=== PATIENT | male | born 1945 | race Caucasian/White ===

== ENCOUNTER → 2017-06-30 | Outpatient (CLI) | payer MEDICARE, BC ==
[~2017-06-30] MED LIST: NAPROSYN500 MG PO; NORCO 325 MG-51 TAB PO
== END ==
LOC: MHCPAIN 09:57
DX: G89.29 Other chronic pain (principal); M54.12 Radiculopathy, cervical region; M47.812 Spondylosis without myelopathy or radiculopathy, cervical region
CPT/HCPCS: G0463

== ENCOUNTER → 2017-07-02 | Outpatient (CLI) | payer MEDICARE, BC | LOC: MHCPAIN 12:16 | DX: M50.10 Cervical disc disorder with radiculopathy, unspecified cervical region (principal); M50.20 Other cervical disc displacement, unspecified cervical region | CPT/HCPCS: J1100; Q9967 ==

== ENCOUNTER → 2017-07-15 | Outpatient (CLI) | payer MEDICARE, BC | LOC: MHCPAIN 13:26 | DX: G89.29 Other chronic pain (principal); M50.90 Cervical disc disorder, unspecified, unspecified cervical region; M54.12 Radiculopathy, cervical region | CPT/HCPCS: G0463 ==

== ENCOUNTER → 2017-08-05 | Outpatient (CLI) | payer MEDICARE, BC | LOC: MHCPAIN 14:07 | DX: M47.22 Other spondylosis with radiculopathy, cervical region (principal); M50.323 Other cervical disc degeneration at C6-C7 level | CPT/HCPCS: J1100; Q9967 ==

== ENCOUNTER → 2018-02-22 | Outpatient (CLI) | payer MEDICARE, BC | LOC: MHCPAIN 08:07 | DX: G89.29 Other chronic pain (principal); M47.817 Spondylosis without myelopathy or radiculopathy, lumbosacral region; M54.16 Radiculopathy, lumbar region; M53.3 Sacrococcygeal disorders, not elsewhere classified; M50.90 Cervical disc disorder, unspecified, unspecified cervical region; M54.12 Radiculopathy, cervical region | CPT/HCPCS: G0463 ==

== ENCOUNTER → 2018-03-01 | Outpatient (CLI) | payer MEDICARE, BC | LOC: MHCPAIN 11:55 | DX: M47.817 Spondylosis without myelopathy or radiculopathy, lumbosacral region (principal); M54.5 Low back pain | CPT/HCPCS: J1040; Q9967 ==

== ENCOUNTER → 2018-04-07 | Outpatient (CLI) | payer MEDICARE, BC | LOC: MHCPAIN 13:09 | DX: G89.29 Other chronic pain (principal); M47.817 Spondylosis without myelopathy or radiculopathy, lumbosacral region; M53.3 Sacrococcygeal disorders, not elsewhere classified; M50.90 Cervical disc disorder, unspecified, unspecified cervical region; M54.12 Radiculopathy, cervical region | CPT/HCPCS: G0463 ==

== ENCOUNTER 2019-10-19 11:19 | Day surgery (SDC) | payer MEDICARE, BC ==
[~2019-10-19] VITALS: Ht 180.3 cm; Wt 128.6 kg
[2019-10-19] VITALS (9 sets, daily range): BP systolic 128–155; BP diastolic 54–76; PULSE 48–64; TEMP 97.7–98.2
[2019-10-19] MEDS ORDERED: CELEBREX 200MG200 MG PO (13:13)
[2019-10-19] MEDS ORDERED: ZOCOR 20MG20 MG PO (13:15)
[2019-10-19] MEDS ORDERED: ZEBETA 5MG5 MG PO (13:17)
[2019-10-19] MEDS ORDERED: PROSCAR 5MG5 MG PO (13:22)
[2019-10-19] MEDS ORDERED: RAPAFLO8 MG PO (13:22)
[2019-10-19] MEDS ORDERED: THEO-24400 MG PO (13:23)
[2019-10-19] MEDS ORDERED: BROVANA15 MCG/2 M IH (13:23)
[2019-10-19] MEDS ORDERED: PULMICORT0.5 MG/2 M IH (13:35)
[2019-10-19] MEDS ORDERED: ALBUTEROL0.83 MG/ML IH (13:40)
[2019-10-19] MEDS ORDERED: ASPIRIN 81M81 MG/TA2 PO (13:42)
[2019-10-19] MEDS ORDERED: VITAMIN D3 PO (13:43)
[2019-10-19] MEDS ORDERED: GARLIC100 MG PO (13:43)
[2019-10-19] MEDS ORDERED: GINGER ROOT EX250 MG PO (13:45)
[2019-10-19] MEDS ORDERED: [UNRECOGNIZED DRUG - OTHER] PO ×2 (13:45→13:46)
[2019-10-19] MEDS ORDERED: TURMERIC500 MG PO (13:47)
--- NOTE | 2019-10-19 14:45 | NUR ---
Has been up to the bathroom x2 to void. Gait steady. IV fluids infusing.
--- NOTE | 2019-10-19 20:00 | NUR ---
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 Assessment complete. VS stable. A&Ox3. Denies pain/shortness of breath/nausea. CBI running at a slow rate with light pink return-no clots noted. Plan of care discussed for this shift to include HS meds/monitoring CBI and adjusting rates as needed. Verbalizes understanding. Denies questions/concerns. Call light in reach. Will monitor.
--- NOTE | 2019-10-19 21:20 | NUR ---
Called nurses station stating he feels very distended and having pain like his bladder is full. CBI continues to run at a slow rate-urine is light pink. Adjusted tubing-states no relief that the bladder feels very full. Irrigated at this time with NS-several large clots returned. Output continues to be reddish flowing at a moderate rate. Verbalizes relief and no longer feeling as if bladder is full and distended. Will continue to run CBI at a moderate rate.
--- NOTE | 2019-10-20 00:15 | NUR ---
Up to ambulate at this time. CBI continues to run at a moderate rate-output fluctuates from light pink to reddish with small clots. Denies pain. Will continue to monitor.
[2019-10-20 00:28] VITALS: BP 108/50; PULSE 65; TEMP 97.3
--- NOTE | 2019-10-20 03:14 | NUR ---
Ambulating in hallway with PCT. Returned to room and wanted to sit up in deshawn for a while as the bed is not comfortable. Noted to have a small amount of blood around penis-cath securement had come lose and caused irritation. Cleaned up and reappied to opposite leg. CBI remains running at a slow to moderate rate. Output fluctuates from light pink to red. Denies pain. Call light in reach. Will monitor.
[2019-10-20 04:23] VITALS: BP 138/43; PULSE 56; TEMP 98.5
--- NOTE | 2019-10-20 05:54 | NUR ---
CBI running at a slow rate-output is light pink to yellow. Did irrigate one time at the beginning of shift with several medium size blood clots returned. No issues since. Does c/o some irritation to penis. States when he ambulated last it goit tugged on. Denies need for intervention. Call light in reach. Will monitor.
--- NOTE | 2019-10-20 07:00 | NUR ---
Patient sitting up in chair. Denies pain. Is ready for his catheter to be removed. Explained process for prime and pull with the patient. Instilled approximately 300mL into bladder. Adela care provided. Removed 23mL from catheter balloon and pulled catheter, all intact. Patient tolerates well. Explain use of urinal and the six bottle routine. Patient verbalizes understanding. Denies further needs at this time. Up ambulating in room.
[2019-10-20 08:04] VITALS: BP 159/53; PULSE 45; TEMP 98.2
--- NOTE | 2019-10-20 10:18 | NUR ---
Sitting up in chair watching TV and talking with significant other. Patient has completed all 6 bottles. Urine is still dark red in color, no clots noted. Patient says that he feels like he is voiding okay and is no longer having the burning sensation. Encouraged to continue to drink water and we will evaluate his urine a few more times. Patient verbalizes understanding and denies further needs.
[2019-10-20 11:12] VITALS: BP 137/55; PULSE 57; TEMP 97.6
--- NOTE | 2019-10-20 11:20 | NUR ---
Discharge instructions reviewed with patient and his . Questions answered. Patient and verbalize understanding and patient signs discharge paperwork. Discharge packet given to the patient. Patient will call when ready to leave.
--- NOTE | 2019-10-20 11:24 | NUR ---
First visit from the agricultural science professor. No needs right now.
--- NOTE | 2019-10-20 11:48 | NUR ---
Patient ready to leave. 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 Patient has all personal belongings.
== END 2019-10-20 11:48 | disposition home or self-care (01) ==
LOC: SDCO 11:19 → SURG 16:58 → SDCO 10-20 11:48
DX: N40.1 Benign prostatic hyperplasia with lower urinary tract symptoms (principal); N13.8 Other obstructive and reflux uropathy; I10 Essential (primary) hypertension; J44.9 Chronic obstructive pulmonary disease, unspecified; Z79.51 Long term (current) use of inhaled steroids; Z87.891 Personal history of nicotine dependence; Z80.9 Family history of malignant neoplasm, unspecified; Z11.59 Encounter for screening for other viral diseases; Z88.8 Allergy status to other drugs, medicaments and biological substances
CPT/HCPCS: OP; J0690; J1100; J2250; J2270; J2405; J2704; J3010; J7120

== ENCOUNTER → 2019-12-07 | Outpatient (CLI) | payer MEDICARE, BC ==
[~2019-12-07] MED LIST changes: +ALBUTEROL0.83 MG/ML IH; +ASPIRIN 81M81 MG/TA2 PO; +BROVANA15 MCG/2 M IH; +CELEBREX 200MG200 MG PO; +GARLIC100 MG PO; +GINGER ROOT EX250 MG PO; +PROSCAR 5MG5 MG PO; +PULMICORT0.5 MG/2 M IH; +RAPAFLO8 MG PO; +THEO-24400 MG PO; +TURMERIC500 MG PO; +VITAMIN D3 PO; +ZEBETA 5MG5 MG PO; +ZOCOR 20MG20 MG PO; +[UNRECOGNIZED DRUG - OTHER] PO
== END ==
LOC: COL.RAD 12:33
DX: R06.02 Shortness of breath (principal)